=== PATIENT | female | born 1990 | race Two or more races ===

== ENCOUNTER 2020-03-09 17:54 | Emergency (ER) | payer MEDICAID ==
[~2020-03-09] VITALS: Ht 154.9 cm; Wt 72.7 kg
[~2020-03-09 17:54] MED LIST: NO HOME MEDS; PHEN-786 PO
[2020-03-09 18:07] VITALS: BP 124/79
[2020-03-09] MEDS ORDERED: LIDOcaine 1% W/epiNEPHrine 1:200,000 10ml vial IJ ONE (20:20)
[2020-03-09] MEDS ORDERED: TETanus/Pertussis (Acell)/Diphther VAC/PF (Tdap-Adult) 0.5ml syringe IMVAC ONE (20:20)
[2020-03-09] MEDS ORDERED: SULF1TAB49 PO (20:45)
--- NOTE | 2020-03-10 09:21 | NUR ---
Patient called regarding the fact that she had lost her prescription and thinks it might have been thrown away. Called [facility] on [address] per patients request for new prescription of bactrim DS 1 tab PO BID x10 days for total of 20 tabs per Denisse Larose. 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
== END 2020-03-09 21:15 | disposition home or self-care (01) ==
LOC: ER 17:55
DX: L02.415 Cutaneous abscess of right lower limb (principal); F11.90 Opioid use, unspecified, uncomplicated; Z98.890 Other specified postprocedural states; Z79.2 Long term (current) use of antibiotics; Z79.899 Other long term (current) drug therapy
CPT/HCPCS: 10060; 90471; 90715; 99283